=== PATIENT | female | born 1950 | race Caucasian/White ===

== ENCOUNTER 2018-12-12 22:31 | Inpatient (IN) | payer MEDICARE, BC ==
[~2018-12-12] VITALS: Ht 170.2 cm; Wt 60.1 kg
--- NOTE | 2018-12-12 22:51 | NUR ---
SHARMAINE RN: PT [facility]. PT REPORTS DISCOLORATION OF RIGHT BIG TOE AND FIRST TOE. VS STABLE. PT SEEN BY DR RUIZ. NO ACUTE DISTRESS NOTED. REPORT GIVEN TO ANTHONY CHAN
[2018-12-12] MEDS ORDERED: LEVO100T PO (23:06)
--- NOTE | 2018-12-12 23:12 | NUR ---
REPORT TO ANTHONY MORENO WHO ASSUMED CARE OF PT.
[2018-12-12] MEDS ORDERED: HEPARIN 25,000 UNITS/500ML PMX 500 ML IV PRN (23:30)
[2018-12-12] MEDS ORDERED: HEPARIN wt. based STROKE protocol IV PRN (23:30)
[2018-12-12] MEDS ORDERED: DO NOT GIVE XX PRN (23:30)
--- NOTE | 2018-12-12 23:40 | NUR ---
DR. YOUNG AT BEDSIDE.
[2018-12-12] MEDS ORDERED: SODIUM CHLORIDE 0.9% 1,000 ML IV SCH (23:48)
--- NOTE | 2018-12-12 23:53 | NUR ---
water and crackers provided. instructed patient NPO after midnight.
[2018-12-13] MEDS ORDERED: morphine SULFATE 10 MG/ML, 1ML IVPush PRN
[2018-12-13] MEDS ORDERED: PROMETHAZINE 25 MG/ML, 1ML IM PRN
[2018-12-13] MEDS ORDERED: ONDANSETRON 2MG/ML, 2ML IVPush PRN
[2018-12-13] MEDS ORDERED: ACETAMINOPHEN 325 MG TABLET PO PRN
[2018-12-13] MEDS ORDERED: hydrALAzine 20 MG/ML, 1ML IVPush PRN
[2018-12-13] MEDS ORDERED: GABAPENTIN 300 MG CAPSULE PO PRN
[2018-12-13] MEDS ORDERED: BISACODYL 10 MG SUPP PR PRN
[2018-12-13] MEDS ORDERED: ONDANSETRON ODT 4 MG PO PRN
[2018-12-13] MEDS ORDERED: OXYcodone/APAP 5/325MG TABLET PO PRN
[2018-12-13] MEDS ORDERED: POLYETHYLENE GLYCOL 17 GM PACKET PO PRN
[2018-12-13] MEDS ORDERED: DOCUSATE 100 MG CAPSULE PO PRN
[2018-12-13] MEDS ORDERED: HEPARIN 25,000 UNITS/500ML PMX 500 ML ONE (00:13)
--- NOTE | 2018-12-13 00:25 | NUR ---
report to ANTHONY Herrera. heparin started.
[2018-12-13 00:55] VITALS: BP 125/80
[2018-12-13 00:58] LABS: HEMOGLOBIN A1C 5.6 % (4.2-6.3)
[2018-12-13 00:59] LABS: FREE T4 (FREE THYROXINE) 1.35 ng/dL (0.76-1.46); THYROID STIMULATING HORMONE 0.857 mIU/L (0.358-3.740)
[2018-12-13] MEDS: LEVOTHYROXINE 100 MCG TABLET PO SCH (02:01)
[2018-12-13] MEDS: ASPIRIN 81 MG TABLET EC PO SCH (02:01)
[2018-12-13 06:19] LABS: BASOPHILS # (AUTO) 0.03 x10^3/uL (0-0.1); BASOPHILS % (AUTO) 1 % (0-1); EOSINOPHILS # (AUTO) 0.13 x10^3/uL (0-0.4); EOSINOPHILS % (AUTO) 3 % (1-7); LYMPHOCYTES # (AUTO) 2.08 x10^3/uL (1-3.4); LYMPHOCYTES % (AUTO) 39 % (22-44); MD NO; MEAN CORPUSCULAR HEMOGLOBIN 31.7 pg (27.0-34.8); MEAN CORPUSCULAR HGB CONC 33.6 g/dL (32.4-35.8); MEAN CORPUSCULAR VOLUME 94.4 fL (80-100); MEAN PLATELET VOLUME 7.8 fL (7.4-10.4); MONOCYTES # (AUTO) 0.48 x10^3/uL (0.2-0.8); MONOCYTES % (AUTO) 9 % (2-9); NEUTROPHILS # (AUTO) 2.64 x10^3/uL (1.8-6.8); NEUTROPHILS % (AUTO) 49 % (42-75); PLATELET COUNT 252 x10^3/uL (130-400); RED BLOOD COUNT 4.83 x10^6/uL (3.82-5.3); RED CELL DISTRIBUTION WIDTH 13.2 % (9.6-15.2)
[2018-12-13 06:30] LABS: ALANINE AMINOTRANSFERASE 22 U/L (12-78); ALBUMIN 3.4 g/dL (3.4-5.0); ANION GAP 7 mmol/L (5-15); CALCIUM 8.9 mg/dL (8.5-10.1); CHLORIDE 109 mmol/L (98-107); CREATININE 1.04 mg/dL (0.55-1.02)
[2018-12-13 06:33] LABS: ALKALINE PHOSPHATASE 70 U/L (45-117); BILIRUBIN,TOTAL 0.3 mg/dL (0.2-1.0); CHOL/HDL RATIO 3.4; CHOLESTEROL, TOTAL 163 mg/dL (140-239); HDL CHOL % 29 % (28-40); HDL CHOLESTEROL (DIRECT) 48 mg/dL (40-60); LDL CHOLESTEROL,CALCULATED 88 mg/dL (54-169); LDL/HDL RATIO 1.8 (0.5-3.0); TOTAL PROTEIN 6.5 g/dL (6.4-8.2); TRIGLYCERIDES 137 mg/dL (50-200); VLDL CHOLESTEROL 27 mg/dL (0-25)
[2018-12-13] MEDS ORDERED: HEPARIN 5,000 UNITS/ML, 1ML ONE (06:33)
[2018-12-13] MEDS ORDERED: HEPARIN 5,000 UNITS/ML, 1ML IVPush ONE (06:45)
[2018-12-13] MEDS ORDERED: HEPARIN 25,000 UNITS/500ML PMX 500 ML IV PRN (07:00)
[2018-12-13] MEDS ORDERED: HEPARIN 5,000 UNITS/ML, 1ML IV PRN (07:00)
[2018-12-13 07:15] VITALS: BP 131/89
[2018-12-13] MEDS ORDERED: SODIUM CHLORIDE 0.9% 1,000 ML IV SCH (07:30)
[2018-12-13] MEDS ORDERED: OMNIPAQUE 350 MG/ML, 100ML BOTTLE ONE (12:58)
[2018-12-13 13:25] LABS: ALBUMIN 3.3 g/dL (3.4-5.0); ANION GAP 7 mmol/L (5-15); CALCIUM 8.2 mg/dL (8.5-10.1); CHLORIDE 107 mmol/L (98-107)
[2018-12-13 13:26] LABS: CREATININE 0.87 mg/dL (0.55-1.02)
[2018-12-13 14:47] VITALS: BP 131/84
[2018-12-13 18:45] VITALS: BP 127/79
[2018-12-14 00:09] VITALS: BP 121/76
[2018-12-14 03:54] LABS: BASOPHILS # (AUTO) 0.04 x10^3/uL (0-0.1); BASOPHILS % (AUTO) 1 % (0-1); EOSINOPHILS # (AUTO) 0.18 x10^3/uL (0-0.4); EOSINOPHILS % (AUTO) 3 % (1-7); LYMPHOCYTES # (AUTO) 2.19 x10^3/uL (1-3.4); LYMPHOCYTES % (AUTO) 41 % (22-44); MD NO; MEAN CORPUSCULAR HEMOGLOBIN 31.7 pg (27.0-34.8); MEAN CORPUSCULAR HGB CONC 33.6 g/dL (32.4-35.8); MEAN CORPUSCULAR VOLUME 94.5 fL (80-100); MEAN PLATELET VOLUME 8.2 fL (7.4-10.4); MONOCYTES # (AUTO) 0.49 x10^3/uL (0.2-0.8); MONOCYTES % (AUTO) 9 % (2-9); NEUTROPHILS # (AUTO) 2.39 x10^3/uL (1.8-6.8); NEUTROPHILS % (AUTO) 45 % (42-75); PLATELET COUNT 251 x10^3/uL (130-400); RED BLOOD COUNT 4.71 x10^6/uL (3.82-5.3); RED CELL DISTRIBUTION WIDTH 13.4 % (9.6-15.2)
[2018-12-14 04:03] LABS: ALBUMIN 3.2 g/dL (3.4-5.0); ANION GAP 6 mmol/L (5-15); CALCIUM 8.4 mg/dL (8.5-10.1); CHLORIDE 113 mmol/L (98-107); CREATININE 1.02 mg/dL (0.55-1.02)
[2018-12-14] MEDS: ASPIRIN 81 MG TABLET EC PO SCH (06:28)
[2018-12-14] MEDS: LEVOTHYROXINE 100 MCG TABLET PO SCH (06:28)
[2018-12-14 08:24] VITALS: BP 115/76
[2018-12-14] MEDS: SODIUM CHLORIDE 0.9% 1,000 ML IV SCH ×2 (08:39→15:30)
[2018-12-14 12:22] VITALS: BP 138/88
[2018-12-14] MEDS ORDERED: RIVAROXABAN 15 MG TABLET PO SCH (14:30)
[2018-12-14] MEDS ORDERED: RIVA20TA PO (14:41)
[2018-12-14] MEDS ORDERED: ATOR20TA37 PO (14:41)
[2018-12-14] MEDS ORDERED: RIVA15TA PO (14:41)
[2018-12-14] MEDS ORDERED: ATORVASTATIN 20 MG TABLET PO SCH (21:00)
== END 2018-12-14 17:06 | disposition home or self-care (01) | DRG 300 ==
LOC: ED 23:50 → EDIP 23:51 → 4NOR 12-13 00:44
PROVIDERS: ADMIT Internal Medicine; ATTEND Internal Medicine
DX: I75.021 Atheroembolism of right lower extremity (principal); N17.9 Acute kidney failure, unspecified; I70.201 Unspecified atherosclerosis of native arteries of extremities, right leg; E03.9 Hypothyroidism, unspecified; Z87.891 Personal history of nicotine dependence
CPT/HCPCS: 36415; 71275; 80048; 80053; 80061; 82040; 83036; 83735; 84439; 84443; 85025; 85520; 93306; 99285; G0378; J1644; Q9967; J7030